=== PATIENT | female | born 1965 | race Caucasian/White ===

== ENCOUNTER 2017-05-25 20:17 | Inpatient (IN) | payer OTHER ==
[~2017-05-25] VITALS: Ht 167.6 cm; Wt 92.1 kg
[2017-05-25 21:34] LABS: AMPHETAMINE QUAL UR NONE DETECTED (NEG <=1000)
[2017-05-25 21:53] LABS: BASOPHIL % 0.5 % (0-2); PLATELET COUNT 193 x10^3mcL (130-400); RED CELL DISTRIBUTION WIDTH 14.1 % (11.5-14.5)
[2017-05-25 22:03] LABS: CALCIUM 9.1 mg/dL (8.5-10.1); CARBON DIOXIDE 23.9 mmol/L (21-32); CHLORIDE SERUM 106 mmol/L (98-107); CREATININE SERUM 0.7 mg/dL (0.6-1.0); GFR1 > 60 mL/min; GLUCOSE SERUM 90 mg/dL (74-106); POTASSIUM SERUM 3.7 mmol/L (3.5-5.1); SODIUM SERUM 140 mmol/L (136-145)
[2017-05-25 22:15] LABS: ALBUMIN 2.8 g/dL (3.4-5.0); ALKALINE PHOSPHATASE 68 U/L (46-116); ALT/SGPT 45 U/L (14-59); AST/SGOT 42 U/L (15-37); BILIRUBIN TOTAL 0.37 mg/dL (0.20-1.00); FREE T4 1.28 ng/dL (0.76-1.46); TOTAL PROTEIN, SERUM 6.2 g/dL (6.4-8.2)
[2017-05-26] MEDS ORDERED: DEPAKOTE500 MG PO (00:43)
[2017-05-26] MEDS ORDERED: LEVOTHYROXIN0.025 M2 PO (00:43)
[2017-05-26] MEDS ORDERED: ZYPREXA5 M1 PO (00:44)
[2017-05-26 00:59] LABS: microscopic required? NO
[2017-05-26 01:04] LABS: urine erythrocyte NEGATIVE (NEGATIVE)
[2017-05-26 02:47] LABS: MAGNESIUM 2.3 mg/dL (1.8-2.4); PHOSPHOROUS 3.8 mg/dL (2.5-4.9)
[2017-05-26 02:51] LABS: CHOLESTEROL/HDL RATIO 4.6
[2017-05-26 13:43] VITALS: BP 117/61
[2017-05-26 16:30] VITALS: BP 116/75
[2017-05-26 21:44] VITALS: BP 122/84
[2017-05-27 06:20] VITALS: BP 116/66
[2017-05-27 10:05] VITALS: BP 111/67
[2017-05-27 19:45] VITALS: BP 122/70
[2017-05-28 00:30] VITALS: BP 118/68
[2017-05-28 06:48] VITALS: BP 108/63
[2017-05-28 09:20] VITALS: BP 124/74
[2017-05-28 11:35] LABS: BASOPHIL % 0.4 % (0-2); PLATELET COUNT 223 x10^3mcL (130-400)
[2017-05-28 11:36] LABS: RED CELL DISTRIBUTION WIDTH 14.9 % (11.5-14.5)
[2017-05-28 11:40] LABS: CALCIUM 8.8 mg/dL (8.5-10.1); CARBON DIOXIDE 22.4 mmol/L (21-32); CHLORIDE SERUM 107 mmol/L (98-107); CREATININE SERUM 0.7 mg/dL (0.6-1.0); GFR1 > 60 mL/min; GLUCOSE SERUM 133 mg/dL (74-106); POTASSIUM SERUM 3.5 mmol/L (3.5-5.1); SODIUM SERUM 142 mmol/L (136-145)
[2017-05-28 16:52] VITALS: BP 108/59
[2017-05-28 21:13] VITALS: BP 114/64
[2017-05-29 05:01] VITALS: BP 121/70
[2017-05-29 07:26] LABS: CALCIUM 9.2 mg/dL (8.5-10.1); CHLORIDE SERUM 105 mmol/L (98-107); CREATININE SERUM 0.6 mg/dL (0.6-1.0); GFR1 > 60 mL/min; GLUCOSE SERUM 85 mg/dL (74-106); MAGNESIUM 2.3 mg/dL (1.8-2.4); PHOSPHOROUS 4.3 mg/dL (2.5-4.9); SODIUM SERUM 138 mmol/L (136-145)
[2017-05-29 08:00] VITALS: BP 120/66
[2017-05-29 08:51] LABS: BASOPHIL % 0.6 % (0-2); PLATELET COUNT 234 x10^3mcL (130-400); RED CELL DISTRIBUTION WIDTH 14.2 % (11.5-14.5)
[2017-05-29 18:00] VITALS: BP 127/76
[2017-05-29 21:14] VITALS: BP 124/80
[2017-05-30 05:22] VITALS: BP 124/79
[2017-05-30 06:25] LABS: CARBON DIOXIDE 24.8 mmol/L (21-32); CHLORIDE SERUM 104 mmol/L (98-107); CREATININE SERUM 0.7 mg/dL (0.6-1.0); GFR1 > 60 mL/min; GLUCOSE SERUM 114 mg/dL (74-106); MAGNESIUM 2.2 mg/dL (1.8-2.4); PHOSPHOROUS 3.2 mg/dL (2.5-4.9); POTASSIUM SERUM 3.8 mmol/L (3.5-5.1); SODIUM SERUM 137 mmol/L (136-145)
[2017-05-30 06:37] LABS: BASOPHIL % 0.4 % (0-2); PLATELET COUNT 269 x10^3mcL (130-400); RED CELL DISTRIBUTION WIDTH 14.4 % (11.5-14.5)
[2017-05-30 10:00] VITALS: BP 103/58
[2017-05-30 12:49] VITALS: BP 106/54
[2017-05-30 12:56] VITALS: Ht 167.6 cm; Wt 92.1 kg
[2017-05-30 14:08] VITALS: BP 106/54
[2017-05-30 17:53] VITALS: BP 103/62
[2017-05-30 21:31] VITALS: BP 120/69
[2017-05-31 05:40] VITALS: BP 99/59
[2017-05-31 07:24] LABS: CALCIUM 8.5 mg/dL (8.5-10.1); CARBON DIOXIDE 25.6 mmol/L (21-32); CHLORIDE SERUM 107 mmol/L (98-107); CREATININE SERUM 0.7 mg/dL (0.6-1.0); GFR1 > 60 mL/min; GLUCOSE SERUM 87 mg/dL (74-106); POTASSIUM SERUM 3.9 mmol/L (3.5-5.1); SODIUM SERUM 139 mmol/L (136-145)
[2017-05-31 07:34] LABS: BASOPHIL % 0.3 % (0-2); PLATELET COUNT 234 x10^3mcL (130-400)
[2017-05-31 07:36] LABS: RED CELL DISTRIBUTION WIDTH 14.8 % (11.5-14.5)
[2017-05-31 08:41] VITALS: BP 122/73
[2017-05-31 19:45] VITALS: BP 102/62
[2017-06-01 09:30] VITALS: BP 109/57
[2017-06-01 11:36] LABS: BASOPHIL % 0.4 % (0-2); PLATELET COUNT 224 x10^3mcL (130-400)
[2017-06-01 11:40] LABS: RED CELL DISTRIBUTION WIDTH 14.6 % (11.5-14.5)
[2017-06-01 11:42] LABS: CALCIUM 8.5 mg/dL (8.5-10.1); CARBON DIOXIDE 26.2 mmol/L (21-32); CHLORIDE SERUM 105 mmol/L (98-107); CREATININE SERUM 0.7 mg/dL (0.6-1.0); GFR1 > 60 mL/min; GLUCOSE SERUM 95 mg/dL (74-106); POTASSIUM SERUM 3.8 mmol/L (3.5-5.1); SODIUM SERUM 140 mmol/L (136-145)
[2017-06-01 17:36] VITALS: BP 113/70
[2017-06-01 19:30] VITALS: BP 11/68; BP 111/69
[2017-06-02 06:15] VITALS: BP 110/71
[2017-06-02 09:46] LABS: BASOPHIL % 0.4 % (0-2); PLATELET COUNT 273 x10^3mcL (130-400)
[2017-06-02 09:47] LABS: CALCIUM 8.6 mg/dL (8.5-10.1); CARBON DIOXIDE 26.1 mmol/L (21-32); CHLORIDE SERUM 106 mmol/L (98-107); CREATININE SERUM 0.8 mg/dL (0.6-1.0); GFR1 > 60 mL/min; GLUCOSE SERUM 80 mg/dL (74-106); SODIUM SERUM 142 mmol/L (136-145)
[2017-06-02 09:51] LABS: RED CELL DISTRIBUTION WIDTH 14.9 % (11.5-14.5)
[2017-06-02] MEDS ORDERED: KLO0.5 PO (11:13)
[2017-06-02] MEDS ORDERED: TRA50 PO (11:14)
[2017-06-02] MEDS ORDERED: SEROQUEL200 MG PO (11:15)
[2017-06-02] MEDS ORDERED: MIRUD PO (11:16)
[2017-06-02] MEDS ORDERED: COL100 PO (11:16)
[2017-06-02 12:27] VITALS: BP 110/71
== END 2017-06-02 14:18 | DRG 70 ==
LOC: ED 20:17 → MU 05-26 00:09 → DU 05-26 00:09 → MU 05-26 07:40 → DU 05-26 07:56 → MU 05-27 16:46
PROVIDERS: Emergency Medicine; Family Medicine; Student in an Organized Health Care Education/Training Program
DX: G93.40 Encephalopathy, unspecified (principal); E43 Unspecified severe protein-calorie malnutrition; N17.0 Acute kidney failure with tubular necrosis; R45.851 Suicidal ideations; F20.0 Paranoid schizophrenia; F79 Unspecified intellectual disabilities; G40.909 Epilepsy, unspecified, not intractable, without status epilepticus; E78.5 Hyperlipidemia, unspecified; E03.9 Hypothyroidism, unspecified; Z68.32 Body mass index [BMI] 32.0-32.9, adult; Z22.322 Carrier or suspected carrier of Methicillin resistant Staphylococcus aureus
CPT/HCPCS: 83880; 84439; 87804; G0480; J1200; J2060; J3486; J7030; Q0092

== ENCOUNTER 2017-06-07 09:08 | Emergency (ER) | payer OTHER ==
[~2017-06-07] VITALS: Ht 170.2 cm; Wt 96.2 kg
[~2017-06-07 09:08] MED LIST: COL100 PO; DEPAKOTE500 MG PO; KLO0.5 PO; LEVOTHYROXIN0.025 M2 PO; MIRUD PO; SEROQUEL200 MG PO; TRA50 PO; ZYPREXA5 M1 PO
[2017-06-07 09:12] VITALS: Ht 170.2 cm; Wt 96.2 kg
[2017-06-07 10:06] LABS: BASOPHIL % 0.3 % (0-2); PLATELET COUNT 288 x10^3mcL (130-400)
[2017-06-07 10:07] LABS: CALCIUM 8.5 mg/dL (8.5-10.1); CARBON DIOXIDE 24.3 mmol/L (21-32); CHLORIDE SERUM 106 mmol/L (98-107); CREATININE SERUM 0.7 mg/dL (0.6-1.0); GFR1 > 60 mL/min; GLUCOSE SERUM 93 mg/dL (74-106); POTASSIUM SERUM 3.5 mmol/L (3.5-5.1); RED CELL DISTRIBUTION WIDTH 14.7 % (11.5-14.5); SODIUM SERUM 141 mmol/L (136-145)
[2017-06-07 10:11] LABS: ALKALINE PHOSPHATASE 67 U/L (46-116); ALT/SGPT 20 U/L (14-59); AST/SGOT 29 U/L (15-37); BILIRUBIN TOTAL 0.2 mg/dL (0.20-1.00); CHOLESTEROL 138 mg/dL (<200); HDL CHOLESTEROL 54 mg/dL (40-60); PHOSPHOROUS 3.2 mg/dL (2.5-4.9); TOTAL PROTEIN, SERUM 6.5 g/dL (6.4-8.2); URIC ACID 3.3 mg/dL (2.6-6.0)
[2017-06-07 10:12] LABS: ALBUMIN 3.1 g/dL (3.4-5.0)
[2017-06-07 11:58] VITALS: BP 112/62
== END 2017-06-07 11:58 | disposition home or self-care (01) ==
LOC: ED 09:08
PROVIDERS: Emergency Medicine
DX: I87.8 Other specified disorders of veins (principal); I10 Essential (primary) hypertension; J45.909 Unspecified asthma, uncomplicated; F20.9 Schizophrenia, unspecified; E03.9 Hypothyroidism, unspecified; M79.89 Other specified soft tissue disorders; Z88.8 Allergy status to other drugs, medicaments and biological substances
CPT/HCPCS: 36415; 83880

== ENCOUNTER 2017-06-09 18:57 | Inpatient (IN) | payer OTHER ==
[~2017-06-09] VITALS: Ht 172.7 cm; Wt 96.2 kg
[2017-06-09 20:02] LABS: BASOPHIL % 0.5 % (0-2); PLATELET COUNT 323 x10^3mcL (130-400)
[2017-06-09 20:11] LABS: RED CELL DISTRIBUTION WIDTH 14.9 % (11.5-14.5)
[2017-06-09 20:24] LABS: CALCIUM 8.7 mg/dL (8.5-10.1); CARBON DIOXIDE 21.8 mmol/L (21-32); CHLORIDE SERUM 106 mmol/L (98-107); CREATININE SERUM 0.7 mg/dL (0.6-1.0); GFR1 > 60 mL/min; GLUCOSE SERUM 93 mg/dL (74-106); POTASSIUM SERUM 3.6 mmol/L (3.5-5.1); SODIUM SERUM 139 mmol/L (136-145)
[2017-06-09 20:27] LABS: AMPHETAMINE QUAL UR NONE DETECTED (NEG <=1000)
[2017-06-09 20:28] LABS: ALKALINE PHOSPHATASE 59 U/L (46-116); ALT/SGPT 20 U/L (14-59); AST/SGOT 30 U/L (15-37); BILIRUBIN TOTAL 0.27 mg/dL (0.20-1.00); TOTAL PROTEIN, SERUM 6.5 g/dL (6.4-8.2)
[2017-06-09 20:31] LABS: ALBUMIN 3.2 g/dL (3.4-5.0)
[2017-06-10 00:48] LABS: UA SPECIFIC GRAVITY 1.025 (1.005-1.035); microscopic required? NO; urine erythrocyte NEGATIVE (NEGATIVE)
[2017-06-10 02:33] LABS: PHOSPHOROUS 3.6 mg/dL (2.5-4.9)
[2017-06-10 02:34] LABS: CHOLESTEROL/HDL RATIO 2.6
[2017-06-10 02:57] LABS: FREE T4 1.57 ng/dL (0.76-1.46); FREE THYROXINE INDEX 3.3 ug/dL (1.4-4.5); T4(THYROXINE) 8.9 ug/dL (4.7-13.3)
[2017-06-10 03:10] LABS: T3 TOTAL 1.03 ng/mL
[2017-06-10 06:46] LABS: BASOPHIL % 0.7 % (0-2); PLATELET COUNT 254 x10^3mcL (130-400)
[2017-06-10 07:16] LABS: CALCIUM 8.1 mg/dL (8.5-10.1); CARBON DIOXIDE 25.1 mmol/L (21-32); CHLORIDE SERUM 107 mmol/L (98-107); CREATININE SERUM 0.6 mg/dL (0.6-1.0); GFR1 > 60 mL/min; GLUCOSE SERUM 89 mg/dL (74-106); POTASSIUM SERUM 3.5 mmol/L (3.5-5.1); SODIUM SERUM 140 mmol/L (136-145)
[2017-06-10 17:31] VITALS: BP 119/72
[2017-06-10 19:30] VITALS: BP 99/56
[2017-06-10 23:10] VITALS: BP 130/104
[2017-06-11 03:00] VITALS: BP 122/83
[2017-06-11 08:00] VITALS: BP 120/70
[2017-06-11 11:09] VITALS: BP 102/72
[2017-06-11 15:36] VITALS: BP 99/55
[2017-06-11 15:56] LABS: CALCIUM 8.6 mg/dL (8.5-10.1); CARBON DIOXIDE 24.3 mmol/L (21-32); CHLORIDE SERUM 106 mmol/L (98-107); CREATININE SERUM 0.6 mg/dL (0.6-1.0); GFR1 > 60 mL/min; GLUCOSE SERUM 80 mg/dL (74-106); MAGNESIUM 2.2 mg/dL (1.8-2.4); PHOSPHOROUS 3.6 mg/dL (2.5-4.9); POTASSIUM SERUM 3.9 mmol/L (3.5-5.1); SODIUM SERUM 141 mmol/L (136-145)
[2017-06-11 16:04] LABS: BASOPHIL % 0.4 % (0-2); PLATELET COUNT 288 x10^3mcL (130-400)
[2017-06-11 16:05] LABS: RED CELL DISTRIBUTION WIDTH 14.8 % (11.5-14.5)
[2017-06-11 23:15] VITALS: BP 152/99
[2017-06-12 04:06] VITALS: BP 144/109
[2017-06-12 07:56] VITALS: BP 115/71
[2017-06-12 10:30] LABS: CALCIUM 8.5 mg/dL (8.5-10.1); CARBON DIOXIDE 22.5 mmol/L (21-32); CHLORIDE SERUM 106 mmol/L (98-107); CREATININE SERUM 0.7 mg/dL (0.6-1.0); GFR1 > 60 mL/min; GLUCOSE SERUM 113 mg/dL (74-106); PHOSPHOROUS 3.1 mg/dL (2.5-4.9); POTASSIUM SERUM 3.9 mmol/L (3.5-5.1); SODIUM SERUM 140 mmol/L (136-145)
[2017-06-12 11:38] VITALS: BP 100/60
[2017-06-12 14:30] LABS: BASOPHIL % 0.5 % (0-2); PLATELET COUNT 293 x10^3mcL (130-400)
[2017-06-12 14:31] LABS: RED CELL DISTRIBUTION WIDTH 14.9 % (11.5-14.5)
[2017-06-12 15:33] VITALS: BP 103/56
[2017-06-12 19:28] VITALS: BP 107/68
[2017-06-12 23:22] VITALS: BP 116/72
[2017-06-13 04:00] VITALS: BP 152/36
[2017-06-13 07:30] VITALS: BP 118/69
[2017-06-13 12:00] VITALS: BP 108/60
[2017-06-13 14:36] LABS: BASOPHIL % 0.5 % (0-2); PLATELET COUNT 281 x10^3mcL (130-400)
[2017-06-13 14:51] LABS: CALCIUM 8.9 mg/dL (8.5-10.1); CARBON DIOXIDE 26.2 mmol/L (21-32); CHLORIDE SERUM 103 mmol/L (98-107); CREATININE SERUM 0.7 mg/dL (0.6-1.0); GFR1 > 60 mL/min; GLUCOSE SERUM 82 mg/dL (74-106); MAGNESIUM 2.1 mg/dL (1.8-2.4); PHOSPHOROUS 3.3 mg/dL (2.5-4.9); POTASSIUM SERUM 3.7 mmol/L (3.5-5.1); SODIUM SERUM 140 mmol/L (136-145)
[2017-06-13 16:13] VITALS: BP 119/68
[2017-06-14 07:28] VITALS: BP 109/78
[2017-06-14 09:47] LABS: BASOPHIL % 0.3 % (0-2); PLATELET COUNT 277 x10^3mcL (130-400)
[2017-06-14 11:22] VITALS: BP 100/67
[2017-06-14 12:02] LABS: CALCIUM 9.4 mg/dL (8.5-10.1); CARBON DIOXIDE 23.2 mmol/L (21-32); CHLORIDE SERUM 105 mmol/L (98-107); CREATININE SERUM 0.7 mg/dL (0.6-1.0); GFR1 > 60 mL/min; GLUCOSE SERUM 103 mg/dL (74-106); MAGNESIUM 2.1 mg/dL (1.8-2.4); POTASSIUM SERUM 4.4 mmol/L (3.5-5.1); SODIUM SERUM 139 mmol/L (136-145)
[2017-06-14 15:30] VITALS: BP 115/66
[2017-06-14 19:34] VITALS: BP 103/73
[2017-06-14 23:59] VITALS: BP 104/57
[2017-06-15 08:00] VITALS: BP 114/70
[2017-06-15 13:15] VITALS: BP 126/74
[2017-06-15 16:15] VITALS: BP 126/70
[2017-06-15 19:30] VITALS: BP 124/70
[2017-06-15 23:26] VITALS: BP 126/68
[2017-06-16 03:21] VITALS: BP 116/74
[2017-06-16 07:43] VITALS: BP 147/87
[2017-06-16 11:45] VITALS: BP 127/87
[2017-06-16 15:30] VITALS: BP 120/74
[2017-06-16 19:20] VITALS: BP 112/74
[2017-06-16 23:05] VITALS: BP 122/86
[2017-06-17 03:17] VITALS: BP 118/82
[2017-06-17 08:00] VITALS: BP 126/77
[2017-06-17 12:12] VITALS: BP 122/72
[2017-06-17 16:00] VITALS: BP 113/65
[2017-06-17 16:27] LABS: BASOPHIL % 0.4 % (0-2); PLATELET COUNT 238 x10^3mcL (130-400); RED CELL DISTRIBUTION WIDTH 14.5 % (11.5-14.5)
[2017-06-17 16:32] LABS: CALCIUM 8.6 mg/dL (8.5-10.1); CARBON DIOXIDE 24.9 mmol/L (21-32); CHLORIDE SERUM 104 mmol/L (98-107); CREATININE SERUM 0.7 mg/dL (0.6-1.0); GFR1 > 60 mL/min; GLUCOSE SERUM 102 mg/dL (74-106); MAGNESIUM 2.2 mg/dL (1.8-2.4); PHOSPHOROUS 3.7 mg/dL (2.5-4.9); POTASSIUM SERUM 4.2 mmol/L (3.5-5.1); SODIUM SERUM 137 mmol/L (136-145)
[2017-06-17 19:30] VITALS: BP 128/78
[2017-06-17 23:20] VITALS: BP 122/76
[2017-06-18 03:11] VITALS: BP 130/91
[2017-06-18 07:43] VITALS: BP 131/88
[2017-06-18 13:00] VITALS: BP 114/68
[2017-06-18 16:37] VITALS: BP 129/72
[2017-06-18 19:20] VITALS: BP 122/84
[2017-06-18 23:19] VITALS: BP 120/78
[2017-06-19 08:20] VITALS: BP 110/68
[2017-06-19 15:53] VITALS: BP 120/71
[2017-06-19 19:15] VITALS: BP 122/79
[2017-06-19 23:33] VITALS: BP 130/79
[2017-06-20 04:10] VITALS: BP 106/71
[2017-06-20 08:28] VITALS: BP 101/77
[2017-06-20 10:12] LABS: CALCIUM 9.2 mg/dL (8.5-10.1); CARBON DIOXIDE 27.7 mmol/L (21-32); CHLORIDE SERUM 105 mmol/L (98-107); CREATININE SERUM 0.6 mg/dL (0.6-1.0); GFR1 > 60 mL/min; GLUCOSE SERUM 91 mg/dL (74-106); POTASSIUM SERUM 3.9 mmol/L (3.5-5.1); SODIUM SERUM 140 mmol/L (136-145)
[2017-06-20 10:33] LABS: BASOPHIL % 0.4 % (0-2); PLATELET COUNT 213 x10^3mcL (130-400)
[2017-06-20 10:35] LABS: RED CELL DISTRIBUTION WIDTH 14.7 % (11.5-14.5)
[2017-06-20 12:52] VITALS: BP 127/77
[2017-06-20 19:30] VITALS: BP 119/67
[2017-06-20 23:30] VITALS: BP 120/76
[2017-06-21 03:08] VITALS: BP 116/69
[2017-06-21 08:00] VITALS: BP 111/63
[2017-06-21 12:00] VITALS: BP 113/68
[2017-06-21 16:34] VITALS: BP 122/74
[2017-06-21 19:51] VITALS: BP 129/75
[2017-06-21 23:28] VITALS: BP 136/72
[2017-06-22 04:06] VITALS: BP 126/69
[2017-06-22 08:12] VITALS: BP 133/80
[2017-06-22 12:32] VITALS: BP 136/82
[2017-06-22 17:46] VITALS: BP 123/79
[2017-06-22 20:00] VITALS: BP 126/74
[2017-06-23 05:50] VITALS: BP 127/80
[2017-06-23 08:00] VITALS: BP 110/66
[2017-06-23 16:57] VITALS: BP 109/71
[2017-06-24 08:00] VITALS: BP 129/73
[2017-06-24 09:30] VITALS: Ht 172.7 cm; Wt 96.2 kg
[2017-06-24 13:24] VITALS: BP 134/73
[2017-06-24 17:36] VITALS: BP 134/90
[2017-06-24 19:46] VITALS: BP 140/78
[2017-06-25 04:28] VITALS: BP 138/64
[2017-06-25 08:00] VITALS: BP 140/78
[2017-06-25 11:59] VITALS: BP 135/80
[2017-06-25 16:25] VITALS: BP 131/63
[2017-06-25 20:00] VITALS: BP 134/75
[2017-06-26] VITALS: BP 128/72
[2017-06-26 04:00] VITALS: BP 111/63
[2017-06-26 07:50] VITALS: BP 123/62
[2017-06-26 11:35] VITALS: BP 112/63
[2017-06-26 15:26] VITALS: BP 122/67
[2017-06-26 19:54] VITALS: BP 122/50
[2017-06-27] VITALS (7 sets, daily range): BP systolic 102–141; BP diastolic 69–100
[2017-06-28 04:08] VITALS: BP 143/42
[2017-06-28] MEDS ORDERED: XARELTO15 M1 PO (06:58)
[2017-06-28] MEDS ORDERED: ABILIFY10 M2 PO (06:59)
[2017-06-28] MEDS ORDERED: SEROQUEL200 MG PO (06:59)
[2017-06-28] MEDS ORDERED: RES15 PO ×2 (07:00→07:01)
[2017-06-28] MEDS ORDERED: ZIPRASIDONE HCL40 M1 PO (07:00)
[2017-06-28 07:49] VITALS: BP 109/85
[2017-06-28 08:29] VITALS: BP 109/85
== END 2017-06-28 09:55 | DRG 885 ==
LOC: ED 18:57 → DU 06-10 11:52 → IC 06-10 11:52 → DU 06-10 11:52 → IC 06-10 16:33
PROVIDERS: Emergency Medicine; Family Medicine
DX: F31.2 Bipolar disorder, current episode manic severe with psychotic features (principal); G93.41 Metabolic encephalopathy; N17.0 Acute kidney failure with tubular necrosis; L03.116 Cellulitis of left lower limb; I82.431 Acute embolism and thrombosis of right popliteal vein; E44.1 Mild protein-calorie malnutrition; G47.00 Insomnia, unspecified; F79 Unspecified intellectual disabilities; G40.909 Epilepsy, unspecified, not intractable, without status epilepticus; E03.9 Hypothyroidism, unspecified; D64.9 Anemia, unspecified; Z68.29 Body mass index [BMI] 29.0-29.9, adult
CPT/HCPCS: 83880; 84439; 90658; 97110-GP; 97116-GP; 97530-GP; G0378; G0480; J0780; J1200; J1630; J2060; J3486; J7030; J8597; Q0092; Q0163